=== PATIENT | male | born 2005 | race Caucasian/White ===

== ENCOUNTER 2024-12-31 13:43 | Outpatient (CLI) | payer OTHER, SELFPAY ==
--- OUTSIDE RECORDS SUMMARY | 2022-10-06 05:15 | XMS_ITS | Continuity of Care Document ---
Author Organization [facility] Address [address] [place] [address] [place] [address] Phone Care Team Providers Care Bag Adjuster Name Role Phone Skyler Sher MD Unavailable Unavailable Allergies, Adverse Reactions, Alerts Substance Reaction Status Criticality No Known Allergies Active No Inform ation Procedures Procedure Date Office/outpatient Visit, New Advance Directives Directive Yes / No Effective Date File Name No Information Encounters Encounter Description Practice Location Reason(s) For Visit Diagnoses Date Provider Providers Copied on Encounter Office/outpa tient Visit, [facility], [address] [place], [place], [id number], [place] tel:[phone] [place] Professional WIE (chief complaint) Dry eye syndrome of left lacrimal glandPapillary conjunctivitis Foreign body of left eye, initial encounter 3 Christos Holland. [address], [place], [id number], [place]. tel:[phone] Referring Provider: Skyler Thayer, [address] [facility], [place], [address] . tel:[phone] Family History Family Member Type Diagnosis Age At Onset No Information Payers Payer name Insurance type Covered green party ID Authoriza tion(s) No Information Social History Type Description Quantity Date Captured Comments Alcohol Use Details Caffeine Use Details Tobacco Use Status Occasional cigarette smoker Smoking Status Current some day smoker Smoking Tobacco Use Details Cigarette: Age Started: 12 Cigarette: No Details Available Non-Smoking Tobacco Use Details Chewing: No Details Available Chewing: No Details Available Sex Male Chief Complaint And Reason For Visit From encounter dated '10/06/2022 10:15'. WIE (chief complaint). Description: The 17 year old patient presents for evaluation of WIE in the left eye. 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 Patient states he flushed it and it felt better but still has FBS OS. Reason For Referral Reason For Referral No Information Plan Of Treatment Date Type Action Status Goal Tobacco cessation counseling completed Patient Education Dry Eyes: Care Instruct ions completed History Of Present Illness Encounter Date Complaint History Of Prese nt Illness WIE The 17 year old patient presents for evaluation of WIE in the left eye. 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 Patient states he flushed it and it felt better but still has FBS OS. Functional Status Date Functional Assessmen t No Information Instructions Date Instruction Additional Infor louie Impression/Plan Assessments Type Assessment Date assessment Dry eye syndrome of left lacrima l gland assessment Papillary conjunctivitis 2022 assessment Foreign body of left eye, initia l encounter Patient Care Teams Name Effective Dates (start - stop) Status Members No Information
--- NOTE | ~2024-12-31 | XR_ITS ---
EXAMINATION: XR chest 2V, 12/31/2024 13:55 CDT HISTORY: COUGH COMPARISON: No comparisons available. Technique: 2 views obtained. Findings: The lungs are clear, no effusion. No pneumothorax. Heart is normal size. Mediastinal and hilar contours are within normal limits. Bony thorax no acute abnormality. Impression: No acute cardiopulmonary abnormality. Reviewed, dictated and finalized at location A. Impression: No acute cardiopulmonary abnormality.
--- OUTSIDE RECORDS SUMMARY | 2024-12-31 14:31 | XMS_ITS | Clinical Summary ---
Author Organization [facility] Address [address] [place] [address] Care Team Providers Care French Tutor Name Role Phone Feliz Head MD Primary Care Provider [phone] Source Comments [facility],non-owned Affiliates and Associated Physician Practices is amultiple site organization consisting of ambulatory clinics and hospital sitesin [place], [place], [place] and [place]. This disclosure is being madepursuant to the Care Everywhere program and may not contain all information available regarding this patient. Last updated 18.mCASH Allergies No known active allergies Medications * Be aware that medications may not be up to date on this document. Alwaysverify current medications with the patient. vitamin D3 (CHOLECALCIFEROL ) 1000 units tablet Take by mouth once daily Active Fish Oil-Cholecalcife rol (FISH OIL + D3 PO) Active Active Problems Problem Noted Date Diagnosed Date TSH elevation 10/28/2018 Overview (10/28/2018): September 18, 2018 - [facility] Na 141 mmol/L, K 4.3 mmol/L, Cl 98 mmol/L, CO2 mmol/L, BUN 9 mg/dL, creatinine 0.87 mg/dL, glucose 82 mg/dL, calcium 10.4 mg/dL, alkaline phosphatase 152 U/L, SGOT (AST) 23 U/L, SGPT (ALT) U/L, total protein 7.8 g/dL, albumin 5.2 g/dL, total bilirubin 0.4 mg/dL; free T4 (direct) 0.89 ng/dL (0.93-1.60), TSH 7.37 uIU/mL (0.45-4.5); WBC 8.5 K, hemoglobin 15.2 g/dL, hematocrit 46.4 %, ples 332 K. Hemoglobin A1c 5.7 %; cholesterol 188 mg/dL (100-169); triglyceride 239 mg/dL (< 89), HDL-cholesterol 28 mg/dL (> 39), LDL-cholesterol 112 mg/dL (< 109), VLDL- cholesterol 48 mg/dL (5-40) Assessment & Plan (10/28/2018 9:15 AM CDT): Mild, serum TSH elevation, identified on routine screening at well childbirth and infant care teacher visit; cause uncertain. Rule out evolving, autoimmune thyroid disease vs nonspecific elevation vs obesity related vs (less likely) dietary iodine deficiency vs subacute thyroiditis vs medication related (amiodarone, lithium, methimazole) 1. Orders Placed This Encounter Procedures ANTI THYROID ANTIBODY PANEL TSH T4 TOTAL 2. Medications - none at this time 3. I will contact Fidel Cuello's mother by telephone ([phone]) with the test results after I have received them and review any additional recommedations. 5. See website: [email or web address].org for patient information handouts - Hypothyroidism 6. Reviewed test results, prior growth records, differential diagnosis, rationale for follow up serum studies, potential medication use, importance of medication adherence, keeping return appointments for blood specimen collections and return visits to optimally managed condition, and answered questions. 7. Return appointment TBA 8. I reviewed my provisional impressions and recommendations with mother and she was in agreement. Family History Medical History Relation Name Comments Hypertension Father Diabetes - Type 2 Other maternal a unt Relation Name Status Comments Father Other Social History Tobacco Use Types Packs/Day Years Used Date Smoking Tobacco: Never Smokeless Tobacco: Never Sex and Gender Information Value Date Recorded Sex Assigned at Not on file Legal Sex Male 12:52 PM CDT Gender Identity Not on file Sexual Orientation Not on file Last Filed Vital Signs Vital Sign Reading Time Taken Comments Blood Pressure 124/64 10/28/2018 8:15 AM CDT Pulse 74 10/28/2018 8:15 AM CDT Temperature - - Respiratory Rate 16 10/28/2018 8:15 AM CDT Oxygen Saturation - - Inhaled Oxygen Concentration - - Weight 94.9 kg (209 lb 3.2 oz) 10/28/2018 8:15 A M CDT Height 178 cm (5' 10.08) 10/28/2018 8:15 AM CDT Body Mass Index 29.95 10/28/2018 8:15 AM CDT Plan of Treatment Health Maintenance Due Date Last Done Comments HIV SCREENING 2018 HPV VACCINE (1 - Male 3-dose series) 2018 MENINGOCOCCAL (Group B) VACCINE SHARED DECISION-MAKING (1 of 2 - Standard) 2019 HEPATITIS C SCREENING 03/23/2021 DTAP/TDAP/TD VACCINES (1 - Tdap) 2022 HEPATITIS B VACCINE (1 of 3 - 19+ 3-dose series) 2022 COVID-19 VACCINE (1 - season) 2023 DEPRESSION SCREENING 04/23/2024 INFLUENZA VACCINE (#1) 2024 8, 03/10/2016, 02/18/2015, Additional history exists ZOSTER VACCINE (1 of 2) 2053 HIB VACCINE Aged Out No longer eligi ble based on patient's age to complete this topic MENINGOCOCCAL GROUPS A/C/Y/W VACCINE Aged Out No longer eligible based on patient's age to complete this topic PNEUMOCOCCAL VACCINE Aged Out No long er eligible based on patient's age to complete this topic Insurance Care Teams French Tutor Relationship Specialty Start Date End Date Fleiz Head MD PCP - General Family Medicine 10/28/18
--- OUTSIDE RECORDS SUMMARY | 2024-12-31 14:31 | XMS_ITS | Clinical Summary ---
Author Organization [facility] Address [address] [place] [address] Care Team Providers Care Prototype Fabricator Name Role Phone Albert Campos MD Primary Care Provider Allergies No known active allergies Medications levoFLOXacin (LEVAQUIN) 500 mg tabletIndications: Skin/Soft Tissue Infection Take 1 tablet (500 mg total) by mouth daily 7 tablet 02/08/20 Active Additional Information Patient not taking.Reported on 02/24/2024 albuterol HFA (PROVENTIL HFA,VENTOLIN HFA,PROAIR HFA) 90 mcg/actuation inhaler Inhale 2 puffs every 4 (four) hours as needed for wheezing (And bronchospastic cough) Collaborating physician Ruben Chester MD 1 each 03/20/20 Active Additional Information Patient not taking.Reported on 06/08/2022 promethazine-DM (PROMETHAZINE-DM) 1.25-3 mg/mL syrup Take 5 mL by mouth 4 (four) times a day as needed for cough (And runny nose) Collaborating physician Ruben Chester MD 118 mL 03/20/20 Active Additional Information Patient not taking.Reported on 02/24/2024 naproxen (NAPROSYN) 500 mg tablet Take 1 tablet (500 mg total) by mouth 2 (two) times a day with meals P.r.n. pain and/or fever. Collaborating physician Ruben Chester MD 20 tablet 03/20/20 Active Additional Information Patient not taking.Reported on 02/24/2024 ondansetron ODT (ZOFRAN-ODT) 4 mg disintegrating tabletIndications: Nausea and vomiting, unspecified vomiting type Take 1 tablet (4 mg total) by mouth every 8 (eight) hours as needed for nausea or vomiting 20 tablet 06/08/19 Active Additional Information Patient not taking.Reported on 02/24/2024 naproxen (NAPROSYN) 500 mg tabletIndications: Abdominal wall strain, initial encounter Take 1 tablet (500 mg total) by mouth 2 (two) times a day with meals P.r.n. pain. Collaborating physician Ruben Chester MD 30 tablet 01/05/20 Active Additional Information Patient not taking.Reported on 02/24/2024 cyclobenzaprine (FLEXERIL) 10 mg tabletIndications: Abdominal wall strain, initial encounter Take 1 tablet (10 mg total) by mouth nightly as needed (Take as directed to relax muscles) Collaborating physician Ruben Chester MD 20 tablet 01/05/20 Active Additional Information Patient not taking.Reported on 02/24/2024 mupirocin (BACTROBAN) 2 % ointment Apply topically 3 (three) times a day Collaborating physician Ruben Chester MD 22 g 01/05/20 Active Additional Information Patient not taking.Reported on 02/24/2024 Active Problems Problem Noted Date Diagnosed Date Abdominal wall strain, initial encounter 023 Cellulitis of right forearm 01/04/2023 Acute bronchitis, viral 03/20/2022 Acute bronchospasm due to viral infection 2021 Surgical History Surgery Date Site/Laterality Comments NO PAST SURGERIES Medical History Medical History Date Comments Known health problems: none Social History Tobacco Use Types Packs/Day Years Used Date Smoking Tobacco: Every Day Cigarettes Smokeless Tobacco: Never Tobacco Cessation:Ready to Q uit: Not Asked; Counseling Given: Not Answered Personal Safety Answer Date Recorded Have you ever been in or are you currently in a harmful physical or emotional relationship or is someone making you feel afraid or unsafe? Denies 05/22/2024 Sex and Gender Information Value Date Recorded Sex Assigned at Not on file Legal Sex Male 8:31 AM CDT Gender Identity Not on file Sexual Orientation Not on file Obstetrics History Last Filed Vital Signs Vital Sign Reading Time Taken Comments Blood Pressure 152/83 05/22/2024 9:54 AM HUMAN CAPITAL CONSULTANT Pulse 79 05/22/2024 9:54 AM HUMAN CAPITAL CONSULTANT Temperature 37 C (98.6 F) 05/22/2024 9:54 AM HUMAN CAPITAL CONSULTANT Respiratory Rate 20 05/22/2024 9:54 AM HUMAN CAPITAL CONSULTANT Oxygen Saturation 96% 05/22/2024 9:54 AM HUMAN CAPITAL CONSULTANT Inhaled Oxygen Concentration - - Weight 115.4 kg (254 lb 8 oz) 05/22/2024 9:54 AM HUMAN CAPITAL CONSULTANT Height 180.3 cm (5' 11) 05/22/2024 9:54 AM HUMAN CAPITAL CONSULTANT Body Mass Index 35.5 05/22/2024 9:54 AM HUMAN CAPITAL CONSULTANT Plan of Treatment Health Maintenance Due Date Last Done Comments Depression Screening 2003 Hepatitis C Screening 2003 Pneumococcal vaccine <65 (1 of 1 - PPSV23, PCV20, or PCV21) 2009 07/19/2004, 2003, 2003, Additional history exists Regular Well Visit/Exam 18-64 2021 DTaP/Tdap/Td Vaccine (7 - Td or Tdap) 09/28/2024 09/28/2014, 10/06/2008, 07/19/2004, Additional history exists Influenza Vaccine (#1) 2024 , 03/19/2019, 02/06/2018, Additional history exists Hepatitis B Screening Completed 2003 , 2003, 2003, Additional history exists Varicella Vaccines Completed 10/06/2008, 07/19/2004 HPV Vaccines Completed 09/21/2016, 02/21, 11/10/2015 Meningococcal Vaccine Completed 11/03/2019, 015 Meningococcal B Vaccine Completed 12/10/2019, 11/02 Additional Health Concerns Infection Onset Date Last Indicated MDR gram neg/ESBL Comment:Patients who received care at a healthcare facility outside of the [place] will be placed in Contact Precautions until infection or colonization with specific highly resistant bacteria can be ruled out. Infection Prevention will arrange screening. Please contact Infection Prevention. 02/07/2022 02/07/2022 Care Teams Prototype Fabricator Relationship Specialty Start Date End Date Albert Campos MD [facility] [address] [address] PCP - General Pediatrics 01/04/23
== END 2024-12-31 13:44 | disposition home or self-care (01) ==
PROVIDERS: PCP Pediatrics; Visit Provider Pediatrics
DX: R05.3 Chronic cough (principal)
CPT/HCPCS: 71046